=== PATIENT | female | born 1960 | race Caucasian/White ===

== ENCOUNTER 2022-07-14 17:43 | Outpatient (REF) | payer BC, SELFPAY ==
--- NOTE | ~2022-07-14 | MR_ITS ---
EXAMINATION: MR BRAIN WITHOUT CONTRAST CLINICAL INFORMATION: 61-year-old with self-reported memory loss. Syncope, ADD. COMPARISON: None TECHNIQUE: Multiplanar multisequence MR imaging of the brain was done without IV contrast. FINDINGS: Brain Volume: Within normal limits within the limitations of qualitative assessment. Structural: Partially empty sella, which is a normal variant. Brain and Meninges: DWI sequence demonstrates no restricted diffusion to suggest acute or subacute cerebral ischemia. A few tiny foci of the white matter T2 hyperintensity are seen in the cerebral hemispheres bilaterally, which are nonspecific findings. Otherwise the brain is normal in morphology and signal intensity. Gradient refocused imaging demonstrates no abnormal magnetic susceptibility artifact to suggest hemorrhage, hemosiderin staining or abnormal mineralization. No extra-axial fluid collections, space-occupying process or mass effect. Ventricles and Subarachnoid Spaces: The ventricular system and subarachnoid spaces are unremarkable without hydrocephalus. Orbital Structures: Bilateral proptosis is noted, which is nonspecific. Suggest correlation with ophthalmologic examination. Vascular: Signal voids are noted in the visualized major intracranial vessels. Osseous Structures, Sinuses/Mastoids, Extracranial Soft Tissues: Note is made of a 1.5 x 0.9 cm cystic lesion in the left parotid gland superficial lobe with a fluid fluid level. Suggest dedicated ultrasound to further assess this. Osseous structures appear intact. MR/MR head/brain wo con IMPRESSION: 1. A few nonspecific white matter T2 hyperintensities in the cerebral hemispheres are noted. 2. No acute intracranial process. No evidence for infarction, hemorrhage, extra-axial fluid collection, space-occupying process, mass effect or hydrocephalus. 3. 1.5 cm, nonspecific cystic lesion in the superficial lobe of the left parotid gland with a possible blood fluid level. Recommend dedicated ultrasound to further assess this. 4. Bilateral proptosis. Suggest correlation with ophthalmologic examination.
== END 2022-07-14 17:44 | disposition home or self-care (01) ==
LOC: HO.MRI 17:43
PROVIDERS: Visit Provider Psychiatry & Neurology Neurology
DX: R55 Syncope and collapse (principal); F98.8 Other specified behavioral and emotional disorders with onset usually occurring in childhood and adolescence
CPT/HCPCS: 70551